=== PATIENT | female | born 1950 | race Caucasian/White ===

== ENCOUNTER 2020-11-06 12:33 | Outpatient (CLI) | payer MEDICARE, BC, SELFPAY ==
--- NOTE | 2020-11-06 15:44 | WPDSIXMINUTE ---
Six Minute Walk Procedure Procedure Performed Pulmonary Stress Test (6 min walk) Six Minute Walk This is a 6 minute walk test. The test was performed and interpreted in accordance with the 2014 ERS/ATS task force guidelines. Findings: The patient's resting room air oxygen saturation measured by pulse oximetry was 94% and her heart rate was 90 bpm. Patient ambulated for 335 meters and oxygen saturation remained 91 to 96%. Heart rate at the end of the study was 101 bpm. The patient did not qualify for supplemental oxygen at rest or with ambulation. There are no prior studies for comparison.
== END 2020-11-06 12:34 | disposition home or self-care (01) ==
LOC: ANHPFT 12:36
DX: J44.9 Chronic obstructive pulmonary disease, unspecified (principal)
CPT/HCPCS: 94618

== ENCOUNTER 2021-02-27 09:30 | Outpatient (RCR) | payer MEDICARE, BC, SELFPAY ==
--- NOTE | 2020-12-30 10:03 | PCCPR ---
Swollen lower leg-sent home No exercise Pat arrived to day requested the nurse to look at her leg ,voicing concern she may have a blood clot. Rt lower tibia area with laila size bruise with redness , swelling and warm to touch. We held exercise. She states is tender and she felt a knot in center. Explained it would be best not to exercise today and should have it examined and may need antibiotics. Her Greg's sign negative and states not painful with walking. She has an apt with her MD in [facility] tomorrow, Encouraged her to call today for an earlier apt or an urgent care. Asked she keep us informed.
== END 2021-02-27 10:30 | disposition home or self-care (01) ==
LOC: ANHCPREHAB 09:30
DX: J44.9 Chronic obstructive pulmonary disease, unspecified (principal); I10 Essential (primary) hypertension
CPT/HCPCS: 97150; G0424

== ENCOUNTER 2021-03-11 08:20 | Outpatient (CLI) | payer MEDICARE, BC, SELFPAY ==
--- NOTE | 2021-03-12 08:03 | WPDSIXMINUTE ---
Six Minute Walk Procedure Procedure Performed Pulmonary Stress Test (6 min walk) Six Minute Walk This is a 6 minute walk test. The test was performed and interpreted in accordance with the 2014 ERS/ATS task force guidelines. Findings: The patient's resting room air oxygen saturation measured by pulse oximetry was 94% and heart rate was 71 bpm. Patient ambulated for 213 meters and oxygen saturation remained 92 to 94%. Heart rate at the end of the study was 97 bpm. The patient did not qualify for supplemental oxygen at rest or with ambulation. There are no prior studies for comparison.
== END 2021-03-11 08:21 | disposition home or self-care (01) ==
DX: J44.1 Chronic obstructive pulmonary disease with (acute) exacerbation (principal)
CPT/HCPCS: 94618

== ENCOUNTER 2021-12-25 08:00 | Outpatient (RCR) | payer MEDICARE, BC, SELFPAY ==
--- NOTE | 2021-12-02 11:43 | PTOPEVAL1 ---
Assessment and note entered by Cordelia Salgado, PT Evaluation Information Assessment Status Evaluation Diagnosis frequent falls Onset about one year Subjective Information have fallen 4-5x in past year; uneven surface-- change from rock to concrete, falls all occurred outside of the home; previously did not always use an assistive device, but in the past month, always use quad cane or wheeled walker, to avoid falling; does not really do any leg exercises, except sitting ankle pumps and walking; Reported Pain Level Pain Score 0: Self Report Additional Pain Score Comments reports no pain at this time, but does have pain in R shoulder, back, knees and hips; Assessment PT Clinical Summary Pat has the diagnosis of frequent falls. She reports 4-5 in the past year and has recently begun using an assistive device all the time. She does not do any leg exercises and is limited with activity due to SOB/asthma. And reports pain in back, hips and knees. With the evaluation, she has decreased R and L LE strength--hips, knees and ankles; with limited ROM of B hip extension and R knee extension, decreased 2 minute walking tolerance and poor gait pattern. Skilled PT services are indicated to increase R and L LE strength, balance and gait skills, to decrease risk for falls and educate on HEP. Plan of Care Interventions Gait Training,Neuro Re-education,Patient/Caregiver Education,Therapeutic Activities,Therapeutic Exercise PT Services Indicated Yes Treatment Frequency and 2x/wk for 4 weeks Duration These treatments will address the objective and functional deficits as defined above. The patient will be advanced safely and appropriately in order for the patient to progress towards his/her prior level of function. Additional exercises will be introduced and as well as a comprehensive home exercise program upon discharge, if needed, ?to ensure carryover of functional gains achieved in the clinic. This treatment plan has been reviewed and agreement upon by the patient.
--- NOTE | 2021-12-11 12:49 | PCPTNOTE ---
Patient requested to cancel today's scheduled visit secondary to having prior appointment to attend.
--- NOTE | 2021-12-25 08:45 | PTOPDC ---
Assessment and note entered by Cordelia Salgado, PT Evaluation Information Assessment Status Discharge Diagnosis frequent falls Onset about one year Subjective Information Laurie reports: doing a little better, but do not have energy- problems with breathing; no falls since starting therapy; use wheeled walker only when go places, in the house usually do not use the walker, sometimes use nothing or cane; got a shot in L foot yesterday due to bone spurs and going to get shoe inserts; has been doing exercises at home; ready to be done with therapy; Reported Pain Level Pain Score 0: Self Report Assessment PT Clinical Summary Laurie has had 7 PT sessions, for the diagnosis of frequent falls. Compared to the initial evaluation, she has improved with: has not had any additional falls; strength of B hips, knees and ankles; time with TUG, walking distance 50' more with 2 minute walking test and did not require any rest breaks; gait pattern with heel-toe pattern, no longer flat foot; She is independent with her HEP with supine, sitting and standing exercises. Laurie continues to have SOB with activity and flexion of her hips and trunk in standing. The goals were partially achieved. Discharge PT services. Plan of Care PT Services Indicated No
== END 2021-12-25 09:42 | disposition home or self-care (01) ==
LOC: ANHPT 08:00
DX: R29.6 Repeated falls (principal)
CPT/HCPCS: 97110; 97112; 97161; 97530

== ENCOUNTER 2022-01-28 08:28 | Emergency (ER) | payer MEDICARE, BC, SELFPAY ==
--- NOTE | ~2022-01-28 | XR_ITS ---
EXAMINATION: XR knee RT min 4V DATE: 01/28/2022 09:29 INDICATION: Right knee pain TECHNIQUE: Five views of the right knee were obtained. COMPARISON: None. FINDINGS: Alignment is normal. No fracture or osteochondral lesion. 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 No joint effusion/synovitis. There is anterior soft tissue swelling of t he leg overlying the proximal tibia. IMPRESSION: 1. Soft tissue swelling and tricompartmental osteoarthritis without acute osseous abnormality. Reviewed, dictated and finalized at location B. P[employer]ACHINE [employer] IMPRESSION: 1. Soft tissue swelling and tricompartmental osteoarthritis without acute osseo us abnormality.
[2022-01-28 08:44] VITALS: BP 114/53; PULSE 69; RESP 16; TEMP 36.4; O2SAT 97
--- NOTE | 2022-01-28 09:57 | ED.LOWEXIN ---
HPI - Extremity Injury (Lower) General Chief Complaint: Extremity Injury, Lower Stated Complaint: right knee pain Time Seen by Provider: 01/28/22 09:26 Source: patient Mode of arrival: ambulatory Limitations: no limitations History of Present Illness HPI Narrative: Right 71-year-old female presents today with complaints of right knee pain that started 3 days ago. Patient denies any injury. Patient denies any previous injuries or surgeries to this knee. Patient denies any fevers, body aches, chills, warmth to the knee. There is mild swelling to the right knee. Patient states it is difficult for her to ambulate due to the pain. Patient currently already on Celebrex twice a day and states that it is not helping. Patient has tried ice and lidocaine patches to this knee without relief. Patient does have an appointment with her primary care doctor on Tuesday. Related Data Home Medications Medication Instructions Recorded Confirmed albuterol 90 mcg/actuation aerosol 90 mcg inhalation PRN PRN 10/31/20 10/31/20 inhaler Shortness Of Breath aspirin 81 mg tablet 81 mg PO DAILY 10/31/20 10/31/20 atorvastatin 80 mg tablet 80 mg DAILY 10/31/20 10/31/20 celecoxib 100 mg capsule (Celebrex) 100 mg PO BID 10/31/20 10/31/20 cholecalciferol (vitamin D3) 100 100 mcg PO DAILY 10/31/20 10/31/20 mcg (4,000 unit) capsule cranberry extract 250 mg tablet 250 mg PO DAILY 10/31/20 10/31/20 ezetimibe 10 mg tablet 10 mg PO DAILY 10/31/20 10/31/20 fluticasone 500 mcg-salmeterol 50 1 inh inhalation Q12H 10/31/20 10/31/20 mcg/dose blistr powdr for inhalation (Wixela Inhub) fluticasone propionate 50 1 spray intranasal DAILY 10/31/20 10/31/20 mcg/actuation nasal spray,suspension (Allergy Relief (fluticasone)) losartan 100 mg tablet 100 mg PO DAILY 10/31/20 10/31/20 montelukast 10 mg tablet 10 mg PO DAILY 10/31/20 10/31/20 omeprazole 20 mg capsule,delayed 20 mg PO DAILY 10/31/20 10/31/20 release pregabalin 150 mg capsule (Lyrica) 150 mg PO BID 10/31/20 10/31/20 ranolazine 500 mg tablet,extended 500 mg PO Q12H 10/31/20 10/31/20 release,12 hr torsemide 20 mg tablet 20 mg PO QAM 10/31/20 10/31/20 vitamin B complex (B 1 tablet PO DAILY 10/31/20 10/31/20 Complex-Vitamin B12 tablet) warfarin 3 mg tablet 3 mg PO DAILY 11/07/20 11/07/20 Allergies Allergy/AdvReac Type Severity Reaction Status Date / Time gabapentin Allergy Hives Verified 10/31/20 08:47 ibuprofen Allergy Other Verified 10/31/20 08:47 Review of Systems Review of Systems: CONSTITUTIONAL: Denies fever, chills, or sweats. EYES: Denies visual changes, redness, or discharge. CARDIOVASCULAR: Denies chest pain, palpitations, or edema. RESPIRATORY: Denies cough or dyspnea. SKIN: Denies rash or itching. MUSCULOSKELETAL: Right knee pain with mild swelling. Denies back pain or myalgia. NEUROLOGIC: Denies headache, numbness, dizziness, or weakness. PSYCHIATRIC: Denies anxiety or depression. [facility] Family History Family History Mother Heart disease Breast cancer Sibling Cervical cancer sister Father Pulmonary disease Social History Social History Smoking status: Never smoker Gender identity (if verbalized by the patient): Female Exam Narrative: GENERAL: Well-appearing, well-nourished, and in no acute distress. HEAD: Normocephalic, atraumatic. EYES: PERRLA and EOMI. CHEST: Clear to auscultation. No respiratory distress. No wheezes rales or rhonchi HEART: Regular rate and rhythm. No murmur heard. Normal peripheral pulses. ABDOMEN: Soft, nontender, nondistended, normal active bowel sounds. EXTREMITIES: Right knee mild swelling with tenderness to the distal area of the knee medially. Full range of motion. Pain with weightbearing. No erythema or warmth. No ecchymosis. No laxity noted. No edema. SKIN: Warm, dry, no rash. NEURO: No focal deficits
== END 2022-01-28 10:49 | disposition home or self-care (01) ==
PROVIDERS: Emergency Provider Nurse Practitioner Family
DX: M17.11 Unilateral primary osteoarthritis, right knee (principal); Z79.82 Long term (current) use of aspirin; Z79.01 Long term (current) use of anticoagulants
CPT/HCPCS: 73564; 99283